=== PATIENT | female | born 1960 | race Caucasian/White ===

== ENCOUNTER → 2018-11-05 | Outpatient (CLI) | payer OTHER ==
[~2018-11-05] MED LIST: NORCO 10-325 T1 EACH PO; SYNTHROID125 MCG PO; ULTRAM 50MG50 MG PO
== END ==
LOC: MAMMO 14:01
PROVIDERS: ATTEND Internal Medicine
DX: Z12.31 Encounter for screening mammogram for malignant neoplasm of breast (principal)
CPT/HCPCS: 77067